=== PATIENT | female | born 1995 | race Caucasian/White ===

== ENCOUNTER 2020-04-15 13:37 | Emergency (ER) | payer OTHER ==
[2020-04-15] MEDS ORDERED: Acetaminophen 325 MG Tab PO ONE (14:06)
[2020-04-15] MEDS ORDERED: Morphine 15 MG Tab PO ONE (14:07)
--- NOTE | 2020-04-15 14:29 | EDM.PDOC ---
ED [facility] GENERAL MEDICAL PROBLEM - General Chief Complaint: HEAD HOLDER Problem Stated Complaint: LOWER BACK PAIN Time Seen by Provider: 04/15/20 13:42 - History of Present Illness INITIAL COMMENTS - FREE TEXT/NARRATIVE: HISTORY AND PHYSICAL: History of present illness: This 24-year-old female who is 19 weeks is 2, para 1 and presents with sudden onset of back pain while she was sitting in a chair at home. She has past surgical history of gastric sleeve and cholecystectomy. She states that the back pain is across the lower back, it is constant, it is severe, it is not going away. It does wrap around slightly to the pelvis but does not come and go. She has not had rupture of membranes. She does not have any vaginal bleeding. Denies any urinary symptoms. No fevers. No nausea or vomiting. Review of systems: A 10-point review of systems, other than pertinent positives and negatives as stated per HPI, is otherwise negative. Past medical history: As per history of present illness and as reviewed below otherwise noncontributory. Surgical history: As per history of present illness and as reviewed below otherwise noncontributory. Social history: No reported history of drug or alcohol abuse. Family history: As per history of present illness and as reviewed below otherwise noncontributory. Physical exam: VITAL SIGNS: Reviewed. GENERAL: Appears very uncomfortable and is crying due to her back pain HEAD: No signs of head trauma. EYES: Pupils are equal. Extraocular motions intact. EARS: Hearing grossly intact. MOUTH: Oropharynx is normal. NECK: No adenopathy, no JVD. CHEST: Chest with clear breath sounds bilaterally. No wheezes, rales, or rhonchi. CARDIAC: Regular rate and rhythm. Normal S1 and S2, without murmurs, gallops, or rubs. VASCULAR: Peripheral pulses normal and equal in all extremities. ABDOMEN: Soft, no distention, body habitus limits palpation of the uterus. No clear evidence of contractions. MUSCULOSKELETAL: Good range of motion of all major joints. Extremities without clubbing, cyanosis or edema. NEUROLOGIC EXAM: Alert and oriented x 3. No focal sensory or motor deficits. Speech normal. Follows commands. PSYCHIATRIC: Mood normal. SKIN: No rash or lesions. Initial Differential Diagnosis & Plan: labor, premature rupture of membranes, placenta abruption, musculoskeletal back pain, cauda equina syndrome, epidural abscess. The patient does not have bilateral radicular symptoms. She has no radicular symptoms in either leg. She has bilateral lumbar pain. No provoking symptoms. No urinary changes or retention or overflow incontinence or saddle anesthesia. No fever or night sweats. Given the symptoms I performed a bedside ultrasound of the fetus and it shows a live intrauterine with a heart rate of 147. No CVA tenderness on exam. Doubt pyelonephritis. No fever. No other infectious symptoms. Because her back pain is not clear. Definitive disposition and diagnosis as appropriate pending reevaluation and review of above. back Pain Score (Numeric/FACES): 10 - Related Data Allergies Allergy/AdvReac Type Severity Reaction Status Date / Time No Known Allergies Allergy Verified 04/15/20 13:51 Home Meds: Home Meds Ferrous Sulfate [Iron] 0 mg PO DAILY 04/15/20 [History] Pnv No.95/Ferrous Fum/Folic AC [ Caplet] 1 tab PO DAILY 04/15/20 [ History] Vitamin B6-pyridOXINE 0 mg PO DAILY 04/15/20 [History] cephALEXin [Keflex] 1,000 mg PO TID 7 Days #42 capsule 04/15/20 [Rx] Past Medical History Respiratory History: Reports: Asthma Gastrointestinal History: Reports: None HEAD HOLDER History: Reports: Psychiatric History: Reports: Anxiety Hematologic History: Reports: Anemia - Past Surgical History Respiratory Surgical History: Reports: None GI Surgical History: Reports: Cholecystectomy, Other (See Below) Other GI Surgeries/Procedures: gastric sleeve Social & Family History - Family History Family Medical History: Noncontributory - Tobacco Use Smoking Status *Q: Never Smoker Second Hand Smoke Exposure: No - Caffeine Use Caffeine Use: Reports: Soda, Tea - Recreational Drug Use Recreational Drug Use: No ED ROS GENERAL - Review of Systems Review Of Systems: See Below (noted) ED EXAM - Physical Exam Exam: See Below (noted) ED Add Procedures - Additional/Other Procedure(s) Procedure(s) (Free Text): PROCEDURE NOTE: Limited OB / Pelvic Ultrasound (transabdominal) Indication: Confirm a live IUP All images obtained and evaluated by me. Images archived and saved. Findings: 1. Uterus Identified 2. No significant Free Fluid Noted 3. Intrauterine identified 4. heart tones measured with M-mode 147 bpm Interpretation: Live IUP Signed by Jose Resendiz M.D. RETROPERITONEAL ULTRASOUND FOR RENAL EVALUATION Self-performed and read; image archived Location: Costovertebral area and Flank Indication: Pain Probe: Phase Array #1: Kidney contour identified #2: No lucent areas in renal pelvis to suggest hydronephrosis #3: No renal stone seen; however given the patient's body habitus and exam this is an indeterminate exam Impression: No hydronephrosis Limited study Signed by Jose Resendiz MD Course - Vital Signs Last Recorded V/S: Last Vital Signs Temp 97.4 F 04/15/20 13:40 Pulse 111 H 04/15/20 13:40 Resp 18 04/15/20 13:40 BP 121/73 04/15/20 13:40 Pulse Ox 98 04/15/20 13:40 - Orders/Labs/Meds Orders: Active Orders 24 hr Category Date Time Status CULTURE URINE [RM] Stat Lab 04/15/20 14:01 Received Labs: Laboratory Tests 04/15/20 04/15/20 04/15/20 Range/Units 14:01 14:20 14:20 WBC 11.46 H (4.0-11.0) K/uL RBC 4.19 L (4.30-5.90) M/uL Hgb 10.5 L (12.0-16.0) g/dL Hct 33.7 L (36.0-46.0) % MCV 80.4 (80.0-98.0) fL MCH 25.1 L (27.0-32.0) pg MCHC 31.2 (31.0-37.0) g/dL RDW Std Deviation 46.7 (28.0-62.0) fl RDW Coeff of Abhilash 16 H (11.0-15.0) % Plt Count 461 H (150-400) K/uL MPV 10.00 (7.40-12.00) fL Neut % (Auto) 71.4 (48.0-80.0) % Lymph % (Auto) 20.1 (16.0-40.0) % Gregory % (Auto) 7.3 (0.0-15.0) % Eos % (Auto) 1.0 (0.0-7.0) % Baso % (Auto) 0.2 (0.0-1.5) % Neut # (Auto) 8.2 H (1.4-5.7) K/uL Lymph # (Auto) 2.3 (0.6-2.4) K/uL Gregory # (Auto) 0.8 (0.0-0.8) K/uL Eos # (Auto) 0.1 (0.0-0.7) K/uL Baso # (Auto) 0.0 (0.0-0.1) K/uL Nucleated RBC % 0.0 /100WBC Nucleated RBCs # 0 K/uL Sodium 138 (136-145) mmol/L Potassium 3.7 (3.5-5.1) mmol/L Chloride 103 (98-107) mmol/L Carbon Dioxide 21.4 (21.0-32.0) mmol/L BUN 5 L (7.0-18.0) mg/dL Creatinine 0.6 (0.6-1.0) mg/dL Est Cr Clr Drug Dosing TNP Estimated GFR (MDRD) > 60.0 ml/min Glucose 90 (74-106) mg/dL Calcium 8.8 (8.5-10.1) mg/dL Total Bilirubin 0.4 (0.2-1.0) mg/dL AST 16 (15-37) IU/L ALT 15 (14-63) IU/L Alkaline Phosphatase 114 (46-116) U/L Total Protein 6.7 (6.4-8.2) g/dL Albumin 3.0 L (3.4-5.0) g/dL Globulin 3.7 (2.6-4.0) g/dL Albumin/Globulin Ratio 0.8 L (0.9-1.6) Urine Color YELLOW Urine Appearance SLT CLOUDY Urine pH 7.0 (5.0-8.0) Ur Specific [place] 1.025 (1.001-1.035) Urine Protein NEGATIVE (NEGATIVE) mg/dL Urine Glucose (UA) NEGATIVE (NEGATIVE) mg/dL Urine Ketones NEGATIVE (NEGATIVE) mg/dL Urine Occult Blood NEGATIVE (NEGATIVE) Urine Nitrite NEGATIVE (NEGATIVE) Urine Bilirubin NEGATIVE (NEGATIVE) Urine Urobilinogen 1.0 (<2.0) EU/dL Ur Leukocyte Esterase SMALL H (NEGATIVE) Urine RBC 0-2 (0-2/HPF) Urine WBC 3-8 (0-5/HPF) Ur Epithelial Cells MODERATE (NONE-FEW) Urine Bacteria 2+ H (NEGATIVE) Meds: Medications Discontinued Medications Generic Name Dose Route Start Last Admin Trade Name Yousif PRN Reason Stop Dose Admin Acetaminophen 975 mg 04/15/20 14:06 04/15/20 14:49 Tylenol PO 04/15/20 14:07 975 mg NOW ONE Administration Cephalexin 1,000 mg 04/15/20 15:55 Keflex PO 04/15/20 15:56 ONETIME ONE Morphine Sulfate 15 mg 04/15/20 14:07 04/15/20 14:55 Morphine PO 04/15/20 14:08 15 mg ONETIME ONE Administration - Re-Assessments/Exams Free Text/Narrative Re-Assessment/Exam: 04/15/20 15:58 The patient is feeling better after treatment. She has a live intrauterine . No evidence of rupture or labor. UA shows bacteriuria. Because the patient has and bacteriuria I will start her on treatment for this as an outpatient. Follow-up with primary care and HEAD HOLDER as recommended. My diagnostic impression: 1. Low back pain 2. Asymptomatic bacteriuria Departure - Departure Time of Disposition: 15:59 Disposition: Home, Self-Care 01 Clinical Impression: Low back pain, Asymptomatic bacteriuria during in first trimester - Discharge Information *PRESCRIPTION DRUG MONITORING PROGRAM REVIEWED*: Not Applicable *COPY OF PRESCRIPTION DRUG MONITORING REPORT IN PATIENT LULU: Not Applicable Prescriptions: cephALEXin [Keflex] 1,000 mg PO TID 7 Days #42 capsule Instructions: Asymptomatic Bacteriuria, Acute Back Pain, Adult Referrals: Sandra Byrd MD [Primary Care Provider] - Forms: ED Department Discharge Additional Instructions: The following information is given to patients seen in the emergency department who are being discharged to home. This information is to outline your options for follow-up care. We provide all patients seen in our emergency department with a follow-up referral. The need for follow-up, as well as the timing and circumstances, are variable depending upon the specifics of your emergency department visit. If you don't have a primary care physician on staff, we will provide you with a referral. We always advise you to contact your personal physician following an emergency department visit to inform them of the circumstance of the visit and for follow-up with them and/or the need for any referrals to a consulting specialist. The emergency department will also refer you to a specialist when appropriate. This referral assures that you have the opportunity for follow-up care with a specialist. All of these measure are taken in an effort to provide you with optimal care, which includes your follow-up. Thank you for coming to the [facility] urgency department for your care today. It was Dr. Resendiz's pleasure to take care of you. Your urinalysis today showed bacteria. No clear infection but given that you are it is standard of care to treat you with antibiotics. We will give you Keflex. This is safe during her . Your back pain is improved. You do not have signs of labor. If you have worsening back pain that comes and goes, pain in the pelvis, vaginal bleeding or discharge please return immediately to the emergency department. Under all circumstances we always encourage you to contact your private physician who remains a resource for coordinating your care. When calling for follow-up care, please make the office aware that this follow-up is from your recent emergency room visit. If for any reason you are refused follow-up, please contact the [facility] Emergency Department at and asked to speak to the emergency department charge nurse. Sepsis Event Note - Evaluation Sepsis Screening Result: No Definite Risk - Focused Exam Vital Signs: Vital Signs Temp Pulse Resp BP Pulse Ox 04/15/20 13:40 97.4 F 111 H 18 121/73 98 Date Exam was Performed: 04/15/20 Time Exam was Performed: 18:49 - My Orders Last 24 Hours: My Active Orders 04/15/20 14:01 CULTURE URINE [RM] Stat - Assessment/Plan Last 24 Hours: My Active Orders 04/15/20 14:01 CULTURE URINE [RM] Stat
[2020-04-15 15:08] LABS: BLOOD UREA NITROGEN,BUN 5 mg/dL (7.0-18.0); CARBON DIOXIDE,CO2 21.4 mmol/L (21.0-32.0); CHLORIDE,CL 103 mmol/L (98-107); GLUCOSE RANDOM 90 mg/dL (74-106); POTASSIUM,K 3.7 mmol/L (3.5-5.1); SODIUM,NA 138 mmol/L (136-145)
[2020-04-15] MEDS ORDERED: Cephalexin 500 MG Cap PO ONE (15:55)
== END 2020-04-15 16:25 | disposition home or self-care (01) ==
LOC: MW.ED 13:37
DX: O99.89 Other specified diseases and conditions complicating pregnancy, childbirth and the puerperium (principal); M54.5 Low back pain; R82.71 Bacteriuria; J45.909 Unspecified asthma, uncomplicated; Z3A.19 19 weeks gestation of pregnancy
CPT/HCPCS: 36415; 80053; 81001; 85025; 87086; 99283; A9270